=== PATIENT | male | born 2000 | race Two or more races ===

== ENCOUNTER 2025-05-14 13:03 | Emergency (ER) | payer SELFPAY ==
[2025-05-14] MEDS ORDERED: Sodium Chloride 0.9% 10 ML Syringe FLUSH PRN (13:11)
[2025-05-14] MEDS: methylPREDNISolone Sodium Succinate 125 MG/2 ML SDV IVPUSH ONE (13:47)
[2025-05-14] MEDS: diphenhydrAMINE 50 MG/ML SDV IVPUSH ONE (13:47)
== END 2025-05-14 14:35 | disposition home or self-care (01) ==
LOC: JD.ED 13:03
DX: L50.9 Urticaria, unspecified (principal); Z91.048 Other nonmedicinal substance allergy status
CPT/HCPCS: 96374; 96375; 99283; A9270; J1200; J1308; J2919